=== PATIENT | female | born 1955 | race Caucasian/White ===

== ENCOUNTER 2017-06-14 09:08 | Day surgery (SDC) | payer OTHER ==
[2017-06-10 12:05] VITALS: BMI 32.5
[2017-06-14] MEDS ORDERED: LIDOCAINE HCL/PF 2% SDV 5ML VIAL ONE (09:25)
[2017-06-14] MEDS ORDERED: POVIDONE-IODINE 5% OPHTHALMIC PREP 30 ML SOLUTION ONE ×2 (09:25→11:18)
[2017-06-14] MEDS ORDERED: BUPIVACAINE HCL/PF 0.5% (5MG/ML) 10 ML VIAL ONE (09:25)
[2017-06-14] MEDS ORDERED: BSS (NA/CA/MG/K) BALANCED SALT SOLUTION OPHTH SOLN 15 ML BOTTLE ONE (09:25)
[2017-06-14] MEDS ORDERED: ACETYLCHOLINE 1:100 INTRA-OCUL 20 MG/2 ML KIT ONE (09:26)
[2017-06-14] MEDS: TROPICAMIDE 1% OPHTH SOLN 15 ML BOTTLE ONE ×5 (09:40→10:00)
[2017-06-14] MEDS: FLURBIPROFEN 0.03% OPHTH SOLN 2.5 ML BOTTLE ONE ×5 (09:40→10:00)
[2017-06-14] MEDS: PHENYLEPHRINE 2.5% OPHTH SOLN 15 ML BOTTLE ONE ×5 (09:40→10:00)
[2017-06-14] MEDS: GENTAMICIN SULFATE 0.3% OPHTHALMIC (EYE DROPS) 5ML BOTTLE ONE ×5 (09:40→10:00)
[2017-06-14] MEDS: CYCLOPENTOLATE HCL 1% OPHTH SOLN 2 ML BOTTLE ONE ×5 (09:40→10:00)
[2017-06-14] MEDS ORDERED: MIDAZOLAM HCL 2 MG/2 ML SINGLE DOSE VIAL ONE (10:51)
[2017-06-14] MEDS ORDERED: ACETAMINOPHEN 325 MG TABLET (FP) PO PRN (11:59)
[2017-06-14 12:22] VITALS: PULSE 62; TEMP 97.8
[2017-06-14 12:54] VITALS: BP 131/57
--- NOTE | 2017-06-14 13:04 | OP ---
DATE OF OPERATION: 06/14/2017 PREOPERATIVE DIAGNOSIS: Cataract, left eye. POSTOPERATIVE DIAGNOSIS: Cataract left eye. PROCEDURE: Cataract extraction via phacoemulsification and insertion of posterior chamber intraocular lens implant, left eye. SURGEON: Tahir Govea MD NECK BAND SETTER SURGEON: Gloria Leary MD ANESTHESIA: Regional with sedation. COMPLICATIONS: None. ESTIMATED BLOOD LOSS: Less than 1 mL. SPECIMENS: None. PROCEDURE IN DETAIL: the patient was identified in the holding area. After all risks, benefits and alternatives were explained to the patient informed consent was obtained. The left eye was marked with a marking pen. The patient then entered the operating room on an eye stretcher. After a formal timeout was performed a 3-mL injection of equal parts 2% lidocaine with epinephrine and 0.5% Marcaine was given around the left eye. The left eye was then prepped and draped in the usual sterile fashion. An eyelid speculum was placed in the eyelids of the left eye. An infratemporal paracentesis incision was then created using a 15-degree blade. Viscoelastic was injection into the anterior chamber. A 2.4-mm keratome layer was then used to make a supratemporal incision. A 36-degree curvilinear capsulorrhexis was created using Downs forceps. Hydrodissection was performed using balance saline solution on a cannula. Phacoemulsification was introduced and removed the nucleus in it entirety. Irrigation/aspiration was then used to remove any remaining cortical material from the eye. The capsular bag was then refilled using viscoelastic. An Kingsley model [id number] with a power of 21.5 diopters serial number [id number] was inspected and found to be defect free and injected into the capsular bag. Irrigation/aspiration was then used to remove any remaining viscoelastic from the eye. The anterior chamber was then reformed using balance saline solution. injection using Miochol and Miostat were then administered. The pupil came down and was round. All wounds were hydrated with balance saline solution after all viscoelastic was removed from the eye. Upon inspection the anterior chamber was deep. There was red reflex present and the lens was perfectly centered in the capsular bag. The eye had adequate pressure also. Topical antibiotic eye drops and ointment were then administered to the left eye. The eyelid speculum was removed from the left eye. The left eye was patched and shielded. The patient tolerated the procedure well and left the operating room in stable condition to follow up in the eye clinic tomorrow morning at 9 o'clock. TAHIR GOVEA M.D. [id number]
== END 2017-06-14 12:50 | disposition home or self-care (01) ==
LOC: FASU 09:08
PROVIDERS: ATTEND Ophthalmology
PROC: 08RK3JZ Replacement of Left Lens with Synthetic Substitute, Percutaneous Approach (ICD-10-PCS; principal; 2017-06-14 11:00)
DX: H26.8 Other specified cataract (principal)

== ENCOUNTER 2017-08-30 08:17 | Day surgery (SDC) | payer OTHER ==
[2017-08-25 13:54] VITALS: BMI 31.6
[~2017-08-30 08:17] MED LIST: CYCLOPENTOLATE HCL 1% OPHTH SOLN 2 ML BOTTLE OD SCH; GENTAMICIN SULFATE 0.3% OPHTHALMIC (EYE DROPS) 5ML BOTTLE OD SCH; KETOROLAC TROMETHAMINE 0.5% 5 ML BOTTLE OPTHALMIC OD SCH; PHENYLEPHRINE 2.5% OPHTH SOLN 15 ML BOTTLE OD SCH; TROPICAMIDE 1% OPHTH SOLN 15 ML BOTTLE OD SCH
[2017-08-30] MEDS: GENTAMICIN SULFATE 0.3% OPHTHALMIC (EYE DROPS) 5ML BOTTLE ONE ×5 (08:45→09:05)
[2017-08-30] MEDS: PHENYLEPHRINE 2.5% OPHTH SOLN 15 ML BOTTLE ONE ×5 (08:45→09:05)
[2017-08-30] MEDS: KETOROLAC TROMETHAMINE 0.5% 5 ML BOTTLE OPTHALMIC ONE ×5 (08:45→09:05)
[2017-08-30] MEDS: CYCLOPENTOLATE HCL 1% OPHTH SOLN 2 ML BOTTLE ONE ×5 (08:45→09:05)
[2017-08-30] MEDS: TROPICAMIDE 1% OPHTH SOLN 15 ML BOTTLE ONE ×5 (08:45→09:05)
[2017-08-30] MEDS ORDERED: ACETAMINOPHEN 325 MG TABLET (FP) PO PRN ×2 (09:15→11:33)
[2017-08-30] MEDS ORDERED: ACETYLCHOLINE 1:100 INTRA-OCUL 20 MG/2 ML KIT ONE (10:32)
[2017-08-30] MEDS ORDERED: LIDOCAINE HCL/PF 2% SDV 5ML VIAL ONE ×2 (10:32→10:47)
[2017-08-30] MEDS ORDERED: CARBACHOL 0.01% INTRA-OCULAR 1.5 ML VIAL ONE (10:32)
[2017-08-30] MEDS ORDERED: POVIDONE-IODINE 5% OPHTHALMIC PREP 30 ML SOLUTION ONE (10:32)
[2017-08-30] MEDS ORDERED: KETOROLAC TROMETHAMINE 30 MG/1 ML VIAL ONE (10:47)
[2017-08-30] MEDS ORDERED: ONDANSETRON 4 MG/2 ML VIAL ONE (10:47)
[2017-08-30 13:31] VITALS: TEMP 98.6
[2017-08-30 13:33] VITALS: BP 170/56; PULSE 66
== END 2017-08-30 12:30 | disposition home or self-care (01) ==
LOC: FASU 08:17
PROVIDERS: ATTEND Ophthalmology
PROC: 08RJ3JZ Replacement of Right Lens with Synthetic Substitute, Percutaneous Approach (ICD-10-PCS; principal; 2017-08-30 10:45)
DX: H26.9 Unspecified cataract (principal)

== ENCOUNTER → 2017-09-12 | Day surgery (SDC) | payer OTHER ==
[~2017-09-12] MED LIST changes: -CYCLOPENTOLATE HCL 1% OPHTH SOLN 2 ML BOTTLE OD SCH; +DEXAMETHASONE SOD PHOSPHATE 4 MG/1 ML VIAL ONE; -GENTAMICIN SULFATE 0.3% OPHTHALMIC (EYE DROPS) 5ML BOTTLE OD SCH; -KETOROLAC TROMETHAMINE 0.5% 5 ML BOTTLE OPTHALMIC OD SCH; +LIDOCAINE HCL/PF 2% SDV 5ML VIAL ONE; +MIDAZOLAM HCL 2 MG/2 ML SINGLE DOSE VIAL ONE; +ONDANSETRON 4 MG/2 ML VIAL ONE; -PHENYLEPHRINE 2.5% OPHTH SOLN 15 ML BOTTLE OD SCH; +PROPOFOL 20 ML ONE; -TROPICAMIDE 1% OPHTH SOLN 15 ML BOTTLE OD SCH; +ceFAZolin SODIUM 1 GM VIAL ONE
--- NOTE | 2017-09-13 11:25 | PATH ---
Surgical Pathology Report Patient Name: PRIYANKA ODEN [facility]. Rec. #: [id number] /Age/Gender: 1955 (Age: 62) / F Account: [id number] Location: [facility] Taken: 09/12/2017 Received: 09/12/2017 Reported: 09/13/2017 Physicians: Ilana Pastor M.D. Specimen(s) Received LEFT BREAST CORE BIOPSY 1:00, 9CM FN Clinical History Non-palpable lesion, status post mastectomy Ultrasound findings: Cystic lesion Final Diagnosis LEFT BREAST, 1:00 9 CM FROM NIPPLE, ULTRASOUND GUIDED NEEDLE BIOPSY: BENIGN FATTY BREAST TISSUE AND BENIGN SKELETAL MUSCLE. Comment: Also see prior specimen [id number]. Electronically Signed Keith Brdaen M.D. Gross Description Received in formalin labeled "left breast biopsy 1:00, 9 cmfn," are 5 irby-yellow, cylindrical portions of fibroadipose tissue ranging from 0.6-2.0 cm in length and averaging 0.2 cm in diameter. The specimen is submitted in toto in one cassette. Time to formalin fixation: Less than one minute Total formalin fixation time: Approximately 8 hours 09/12/2017
--- NOTE | 2017-09-13 20:48 | OP ---
DATE OF OPERATION: 09/12/2017 PREOPERATIVE DIAGNOSIS: Left breast mass, 1 o'clock, 9 cm from the nipple. POSTOPERATIVE DIAGNOSIS: Left breast mass, 1 o'clock, 9 cm from the nipple. PROCEDURE: Left ultrasound-guided core biopsy with clip placement. ANESTHESIA: Local. ATTENDING SURGEON: Ilana Pastor MD ESTIMATED BLOOD LOSS: Minimal. COMPLICATIONS: None. DESCRIPTION OF PROCEDURE: Patient was made aware of the risks and benefits of the procedure and consented. She was placed in a supine position. Under sterile conditions with 1% lidocaine for local anesthesia, a small conchita was made in the skin. Using a 13-gauge suction biopsy device via inferolateral approach under ultrasound guidance, multiple cores were obtained and submitted to Pathology. Likewise, under ultrasound guidance, a bow-tie clip was placed into the biopsy region. Steri-Strips and sterile bandage were applied. Well tolerated by the patient. We will contact her with results. ILANA PASTOR M.D. [id number]
== END | disposition home or self-care (01) ==
LOC: FRADUS-SUR 14:10
PROVIDERS: ATTEND Surgery Surgical Oncology
PROC: 0HBU3ZX Excision of Left Breast, Percutaneous Approach, Diagnostic (ICD-10-PCS; principal; 2017-09-12)
DX: N63.23 Unspecified lump in the left breast, lower outer quadrant (principal)
CPT/HCPCS: 19083; 88305-TC

== ENCOUNTER 2017-09-27 11:52 | Day surgery (SDC) | payer OTHER ==
--- NOTE | 2017-09-19 10:57 | HP ---
Admitting History and Physical - Primary Care Physician PCP: Ilana Pastor - Admission Chief Complaint: Left breast mass, Pathology not concordinant with mammogram and US History of Present Illness: 62 year old postmenapausal female S/P right breast wide excision sentenel node biopsy reduction 2011 for IDC and tamoxifen for 5 years. Recent mammogram and US had left breast calcified mass. Birad 4. US core bioipsy done 09/2017 showed benign left breast fatty tissue felt to not be concordinant with findings. Therefore excision advised History Source: Patient Limitations to Obtaining History: No Limitations - Past Medical History Cardiovascular: Yes: HTN - Past Surgical History Additional Past Surgical History: Right breast cancer S/P right breast wide excision and SNBX and IORT tamoxifen 5 years. - Smoking History Smoking history: Former smoker Have you smoked in the past 12 months: No If you are a former smoker, when did you quit?: 1993 - Alcohol/Substance Use Hx Alcohol Use: No Home Medications - Allergies Allergies/Adverse Reactions: Allergies Allergy/AdvReac Type Severity Reaction Status Date / Time gluten Allergy Intermediate Rash Verified 08/30/17 08:53 amlodipine Allergy Swelling, Verified 08/30/17 08:53 RASH clindamycin Allergy Rash Verified 08/30/17 08:53 losartan [Losartan] Allergy RASH, GI Verified 08/30/17 08:53 UPSET - Home Medications Home Medications: Ambulatory Orders Metoprolol Tartrate [Lopressor] 50 mg PO HS 11/04/11 Cyanocobalamin (Vitamin B-12) [Vitamin B12] 2,500 mcg PO DAILY 08/25/17 Multivitamins [Tab-A-Vit -] 1 tab PO DAILY 08/25/17 Family Disease History - Family Disease History Family Disease History: CA: Father (bladder ca), Brother (ocular melanoma 67// brother melanoma 63) Other Family History: mat aunt breast ca 45/60 Physical Examination Constitutional: Yes: Well Nourished Breast(s): Yes: Other (diffusely nodular healed incision right breast from wide excision no recurrence, left breast post bx changes no adenopathy bilaterally) Problem List - Problems (1) Breast mass, left Code(s): N63.20 - UNSPECIFIED LUMP IN THE LEFT BREAST, UNSPECIFIED QUADRANT Assessment/Plan Left breast wide excision with mammogram needle localization
[2017-09-21 13:26] VITALS: BMI 31.1
[2017-09-27] MEDS ORDERED: BUPIVACAINE HCL/PF 2.5 MG/ML - 30 ML VIAL IJ ONE (15:35)
[2017-09-27] MEDS ORDERED: LIDOCAINE HCL 1%, 10 MG/ML (20ML VIAL) ONE (15:35)
[2017-09-27] MEDS ORDERED: KETOROLAC TROMETHAMINE 30 MG/1 ML VIAL IVPUSH PRN (15:45)
[2017-09-27] MEDS ORDERED: DEXTROSE 5%-0.45% SALINE 1,000 ML IV SCH (15:45)
[2017-09-27] MEDS ORDERED: ONDANSETRON 4 MG/2 ML VIAL IVPUSH PRN ×2 (15:45→16:39)
[2017-09-27] MEDS ORDERED: LIDOCAINE HCL 1%, 10 MG/ML (50 mL VIAL) IJ ONE (16:07)
[2017-09-27] MEDS ORDERED: BUPIVACAINE HCL/PF 0.25% (2.5MG/ML) 10 ML VIAL IJ ONE (16:07)
[2017-09-27] MEDS ORDERED: oxyCODONE HCL 5 MG TABLET PO PRN (16:39)
[2017-09-27] MEDS ORDERED: LACTATED RINGERS SOLUTION 1,000 ML IV SCH (16:45)
[2017-09-27 17:24] VITALS: TEMP 97.6
[2017-09-27 17:45] VITALS: BP 134/68; PULSE 68
--- NOTE | 2017-09-28 11:44 | OP ---
DATE OF OPERATION: 09/27/2017 PREOPERATIVE DIAGNOSIS: Left breast mass. POSTOPERATIVE DIAGNOSIS: Left breast mass. PROCEDURE: Left breast ultrasound localized partial mastectomy. ANESTHESIA: IV sedation with local. ATTENDING SURGEON: Ilana Pastor MD ESTIMATED BLOOD LOSS: Minimal. COMPLICATIONS: None. DESCRIPTION OF PROCEDURE: Patient was made aware of the risks and benefits of the procedure and consented. She was placed in the supine position after going to the radiology suite where, under ultrasound guidance, a wire was placed next to the indexed lesion. After IV sedation was administered, the operative site was prepped and draped in the usual sterile fashion. Lidocaine 1% mixed in 1-to-1 ratio with 0.25% bupivacaine without epinephrine was used for local anesthesia. A curvilinear incision was made next to the wire. Using electrocautery, thick skin flaps were made. The needle was withdrawn from the puncture site, and a wire through the wound. Tissues around the wires were then sharply excised and submitted to Pathology. Palpation of the lesions revealed index mass. The wound was copiously irrigated with normal saline. Hemostasis was maintained by electrocautery. The wound was then closed with deep 3-0 Vicryl followed by a running subcuticular 4-0 Monocryl. Dermabond was then applied as well as a sterile dressing and compression bra. The patient tolerated the procedure well and was transferred to the recovery room in excellent condition. ILANA PASTOR M.D. [id number]
--- NOTE | 2017-09-30 17:45 | PATH ---
Surgical Pathology Report Patient Name: PRIYANKA ODEN Med. Rec. #: [id number] /Age/Gender: 1955 (Age: 62) / F Account: [id number] Location: [facility] Taken: 09/27/2017 Received: 09/27/2017 Reported: 09/30/2017 Physicians: Ilana Pastor M.D. Specimen(s) Received LEFT BREAST WIDE EXCISION Clinical History Status post discordant core biopsy Final Diagnosis BREAST, LEFT, WIDE EXCISION: BENIGN BREAST TISSUE SHOWING STROMAL FIBROSIS. PRIOR BIOPSY SITE CHANGES ARE PRESENT. Electronically Signed Merly Biswas M.D. Gross Description Received in formalin labeled "left breast wide excision," is a 4.0 x 3.0 x 1.5 cm irregular portion of fibroadipose tissue with a needle localization wire present. There are no orienting sutures present on the specimen, despite the indication on the requisition. There is no skin present. The specimen is inked green and serially sectioned. Sectioning reveals foci of white fibrous tissue. No definitive mass is identified. The specimen is entirely and sequentially submitted in 8 cassettes. Time to formalin fixation: 1 minute Total formalin fixation time: Approximately 26 hours. 09/28/201709/28/2017
== END 2017-09-27 18:10 | disposition home or self-care (01) ==
LOC: FASU 11:52
PROVIDERS: ATTEND Surgery Surgical Oncology
PROC: 0HBU0ZX Excision of Left Breast, Open Approach, Diagnostic (ICD-10-PCS; principal; 2017-09-27 16:06)
DX: N63.21 Unspecified lump in the left breast, upper outer quadrant (principal); I10 Essential (primary) hypertension; Z87.891 Personal history of nicotine dependence; Z90.11 Acquired absence of right breast and nipple; Z92.3 Personal history of irradiation
CPT/HCPCS: 19281; 88307-TC; 94760